=== PATIENT | male | born 2000 | race African-American/Black ===

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

== ENCOUNTER 2019-01-15 11:29 | Emergency (ER) | payer OTHER ==
[~2019-01-15] VITALS: Ht 182.9 cm; Wt 165.6 kg
[2019-01-15 11:34] VITALS: BP 163/63; Ht 182.9 cm; Wt 165.6 kg
== END 2019-01-15 12:32 | disposition home or self-care (01) ==
LOC: ED 11:29
DX: F17.210 Nicotine dependence, cigarettes, uncomplicated (principal); I10 Essential (primary) hypertension; E66.01 Morbid (severe) obesity due to excess calories; M54.9 Dorsalgia, unspecified; J34.89 Other specified disorders of nose and nasal sinuses; Z68.41 Body mass index [BMI] 40.0-44.9, adult
CPT/HCPCS: 99406

== ENCOUNTER 2019-02-17 17:34 | Emergency (ER) | payer OTHER | END 2019-02-17 20:20 | disposition home or self-care (01) | LOC: ED 17:34 ==

== ENCOUNTER 2019-04-24 21:16 | Emergency (ER) | payer OTHER ==
[~2019-04-24] VITALS: Ht 182.9 cm; Wt 122.5 kg
[2019-04-24 21:40] VITALS: Ht 182.9 cm; Wt 122.5 kg
[2019-04-24 23:23] VITALS: BP 180/99
== END 2019-04-24 23:23 | disposition home or self-care (01) ==
LOC: ED 21:16
DX: S93.402A Sprain of unspecified ligament of left ankle, initial encounter (principal); I10 Essential (primary) hypertension; W16.512A Jumping or diving into swimming pool striking water surface causing other injury, initial encounter; Y93.89 Activity, other specified; Y92.89 Other specified places as the place of occurrence of the external cause; Y99.8 Other external cause status

== ENCOUNTER 2019-06-12 20:09 | Emergency (ER) | payer OTHER ==
[~2019-06-12] VITALS: Ht 182.9 cm; Wt 161.9 kg
[2019-06-12 20:12] VITALS: Ht 182.9 cm; Wt 161.9 kg
[2019-06-12 20:46] VITALS: BP 172/105
== END 2019-06-12 20:46 | disposition home or self-care (01) ==
LOC: ED 20:09
DX: T78.1XXA Other adverse food reactions, not elsewhere classified, initial encounter (principal); L29.9 Pruritus, unspecified; I10 Essential (primary) hypertension; X58.XXXA Exposure to other specified factors, initial encounter